=== PATIENT | female | born 1995 ===

== ENCOUNTER → 2023-06-28 | Outpatient (CLI) | payer OTHER ==
[2023-06-28 16:01] LABS: Source, Urine Voided
[2023-06-28 16:48] LABS: Appearance, Urine Clear (Clear); Bilirubin, Urine Neg (Neg); Blood, Urine Neg (Neg); Glucose Qualitative, Urine Neg (Neg); Ketones, Urine Neg (Neg); Leukocyte Esterase, Urine Neg (Neg); Nitrite, Urine Neg (Neg); Protein, Urine Neg (Neg); Specific Gravity, Urine 1.015 (1.003-1.022); Urobilinogen, Urine NORM (Normal); pH, Urine 6.5 (5.0-8.0)
[2023-06-28 17:00] LABS: Color, Urine Pale Yellow (P-Yellow)
[2023-06-28 19:27] LABS: BASOPHILS ABSOLUTE AUTO 0.02 K/mm3 (0.00-0.23); BASOPHILS PERCENT AUTO 0 % (0-2); EOSINOPHILS ABSOLUTE AUTO 0.36 K/mm3 (0.00-0.68); EOSINOPHILS PERCENT AUTO 4 % (0-6); Hematocrit 34.3 % (33.0-51.0); Hemoglobin 10.8 g/dL (11.5-16.0); IMMATURE GRAN ABSOLUTE AUTO 0.16 K/mm3 (0.00-0.10); IMMATURE GRAN PERCENT AUTO 2 % (0-1); LYMPHOCYTES ABSOLUTE AUTO 2.01 K/mm3 (0.84-5.20); LYMPHOCYTES PERCENT AUTO 21 % (21-46); MONOCYTES ABSOLUTE AUTO 0.75 K/mm3 (0.16-1.47); MONOCYTES PERCENT AUTO 8 % (4-13); Mean Corpuscular HGB Conc 31.5 g/dL (31.5-36.5); Mean Corpuscular Volume 92 fL (80-100); Mean Platelet Volume 12.3 fL (9.1-12.4); NEUTROPHILS ABSOLUTE AUTO 6.52 K/mm3 (1.96-9.15); NEUTROPHILS PERCENT AUTO 66 % (41-73); Platelet Count 272 K/mm3 (150-400); RDW Coefficient Variation 13.5 % (11.7-14.2); RDW Standard Deviation 45.6 fL (35.1-46.3); Red Blood Cell Count 3.73 M/mm3 (3.80-5.20); White Blood Cell Count 9.82 K/mm3 (4.00-11.30)
[2023-06-30 01:09] LABS: CHLAMYDIA TRACHOMATIS, NAA Negative (Negative)
[2023-06-30 06:12] LABS: HBSAG SCREEN Negative (Negative)
[2023-06-30 07:13] LABS: HIV AB/P24 AG SCREEN Non Reactive (Non Reactive)
== END | disposition home or self-care (01) ==
LOC: LAB 15:59 → LAB SHORT 15:59
PROVIDERS: Registered Nurse Community Health
DX: Z34.02 Encounter for supervision of normal first pregnancy, second trimester (principal); Z3A.00 Weeks of gestation of pregnancy not specified
CPT/HCPCS: 80055; 81003; 84443; 87086; 87389; 87491; 87591

== ENCOUNTER → 2023-08-24 | Outpatient (CLI) | payer OTHER ==
[2023-08-24 17:49] LABS: Hematocrit 29.1 % (33.0-51.0); Hemoglobin 9.2 g/dL (11.5-16.0)
== END | disposition home or self-care (01) ==
LOC: LAB 16:34 → LAB SHORT 16:34
PROVIDERS: Registered Nurse Community Health
DX: Z34.02 Encounter for supervision of normal first pregnancy, second trimester (principal)
CPT/HCPCS: 82950; 85014; 85018

== ENCOUNTER → 2023-09-08 | Outpatient (CLI) | payer OTHER ==
[2023-09-08 17:45] LABS: Percent Saturation 13.1 % (15.0-50.0)
== END | disposition home or self-care (01) ==
LOC: LAB 15:28 → LAB SHORT 15:28
PROVIDERS: Registered Nurse Community Health
DX: Z34.02 Encounter for supervision of normal first pregnancy, second trimester (principal)
CPT/HCPCS: 82728; 83540; 83550

== ENCOUNTER → 2023-10-20 | Outpatient (CLI) | payer OTHER | END | disposition home or self-care (01) | LOC: LAB 16:36 → LAB SHORT 16:36 | DX: Z34.03 Encounter for supervision of normal first pregnancy, third trimester (principal) | CPT/HCPCS: 87081; 87150 ==

== ENCOUNTER 2023-11-07 07:58 | Inpatient (IN) | payer OTHER ==
[2023-11-07] VITALS (15 sets, daily range): BP systolic 99–130; BP diastolic 59–84
[~2023-11-07] VITALS: Ht 154.9 cm; Wt 61.0 kg
[2023-11-07 09:29] LABS: BASOPHILS ABSOLUTE AUTO 0.02 K/mm3 (0.00-0.23); BASOPHILS PERCENT AUTO 0 % (0-2); EOSINOPHILS ABSOLUTE AUTO 0.12 K/mm3 (0.00-0.68); EOSINOPHILS PERCENT AUTO 1 % (0-6); Hematocrit 35.2 % (33.0-51.0); Hemoglobin 11.3 g/dL (11.5-16.0); IMMATURE GRAN ABSOLUTE AUTO 0.47 K/mm3 (0.00-0.10); IMMATURE GRAN PERCENT AUTO 5 % (0-1); LYMPHOCYTES ABSOLUTE AUTO 1.79 K/mm3 (0.84-5.20); LYMPHOCYTES PERCENT AUTO 20 % (21-46); MONOCYTES ABSOLUTE AUTO 0.78 K/mm3 (0.16-1.47); MONOCYTES PERCENT AUTO 9 % (4-13); Mean Corpuscular HGB 28.3 pg (26.0-34.0); Mean Corpuscular HGB Conc 32.1 g/dL (31.5-36.5); Mean Corpuscular Volume 88 fL (80-100); Mean Platelet Volume 12.1 fL (9.1-12.4); NEUTROPHILS ABSOLUTE AUTO 5.77 K/mm3 (1.96-9.15); NEUTROPHILS PERCENT AUTO 65 % (41-73); Platelet Count 222 K/mm3 (150-400); RDW Coefficient Variation 16.3 % (11.7-14.2); RDW Standard Deviation 51.8 fL (35.1-46.3); White Blood Cell Count 8.95 K/mm3 (4.00-11.30)
[2023-11-08] VITALS (20 sets, daily range): BP systolic 93–118; BP diastolic 52–76
[2023-11-09] VITALS (7 sets, daily range): BP systolic 88–109; BP diastolic 53–65
[2023-11-09 06:03] LABS: Hemoglobin 9.2 g/dL (11.5-16.0); Mean Corpuscular HGB 28.4 pg (26.0-34.0); Mean Corpuscular HGB Conc 31.7 g/dL (31.5-36.5); Mean Corpuscular Volume 90 fL (80-100); Mean Platelet Volume 11.8 fL (9.1-12.4); Platelet Count 171 K/mm3 (150-400); RDW Coefficient Variation 16.6 % (11.7-14.2); RDW Standard Deviation 54.5 fL (35.1-46.3); Red Blood Cell Count 3.24 M/mm3 (3.80-5.20); White Blood Cell Count 11.46 K/mm3 (4.00-11.30)
--- NOTE | 2023-11-09 16:24 | NUR ---
DISCHARGE NOTE; PT TO DC NOW. DC INSTRUCTIONS PROVIDED AND PT ENCOURAGED TO ASK QUESTIONS. PT DENIES ANY QUESTIONS. PPFU APPT CARD GIVEN. BLEEDING IS WNL. PT IS VOIDING. SOME URGE INCONTINENCE, AWARE. PT BEING PUSHED OUT VIA WHEEL CHAIR BY PIA POSADA PRESENTLY.
== END 2023-11-09 16:24 | disposition home or self-care (01) | DRG 807 ==
LOC: OBS 07:58 → BC 08:01 → OBS 08:20 → BC 08:21
PROVIDERS: Family Medicine; ADMIT Registered Nurse Community Health
PROC: 10E0XZZ Delivery of Products of Conception, External Approach (ICD-10-PCS; principal; 2023-11-08)
PROC: 0KQM0ZZ Repair Perineum Muscle, Open Approach (ICD-10-PCS; principal; 2023-11-08)
DX: O99.824 Streptococcus B carrier state complicating childbirth (principal); Z37.0 Single live birth; Z3A.00 Weeks of gestation of pregnancy not specified; O70.1 Second degree perineal laceration during delivery; O69.1XX0 Labor and delivery complicated by cord around neck, with compression, not applicable or unspecified
CPT/HCPCS: 36415; 51702; 59025; 85025; 85027; 86850; 86900; 86901; A9270; J0290; J1885; J2405; J2590; J3010; J7120; J7121

== ENCOUNTER → 2023-11-23 | Outpatient (CLI) | payer OTHER ==
[2023-11-23 19:11] LABS: BASOPHILS ABSOLUTE AUTO 0.05 K/mm3 (0.00-0.23); BASOPHILS PERCENT AUTO 1 % (0-2); EOSINOPHILS ABSOLUTE AUTO 0.34 K/mm3 (0.00-0.68); EOSINOPHILS PERCENT AUTO 4 % (0-6); Hematocrit 40.2 % (33.0-51.0); Hemoglobin 12.7 g/dL (11.5-16.0); IMMATURE GRAN ABSOLUTE AUTO 0.08 K/mm3 (0.00-0.10); IMMATURE GRAN PERCENT AUTO 1 % (0-1); LYMPHOCYTES ABSOLUTE AUTO 2.47 K/mm3 (0.84-5.20); LYMPHOCYTES PERCENT AUTO 28 % (21-46); MONOCYTES PERCENT AUTO 8 % (4-13); Mean Corpuscular HGB Conc 31.6 g/dL (31.5-36.5); Mean Corpuscular Volume 89 fL (80-100); Mean Platelet Volume 11.6 fL (9.1-12.4); NEUTROPHILS ABSOLUTE AUTO 5.11 K/mm3 (1.96-9.15); NEUTROPHILS PERCENT AUTO 58 % (41-73); Platelet Count 357 K/mm3 (150-400); RDW Coefficient Variation 15.5 % (11.7-14.2); RDW Standard Deviation 50.5 fL (35.1-46.3); Red Blood Cell Count 4.53 M/mm3 (3.80-5.20); White Blood Cell Count 8.75 K/mm3 (4.00-11.30)
== END | disposition home or self-care (01) ==
LOC: LAB 17:26 → LAB SHORT 17:26
PROVIDERS: Registered Nurse Community Health
DX: Z39.2 Encounter for routine postpartum follow-up (principal)
CPT/HCPCS: 85025

== ENCOUNTER → 2023-12-06 | Outpatient (CLI) | payer OTHER ==
[2023-12-06 20:02] LABS: BASOPHILS ABSOLUTE AUTO 0.02 K/mm3 (0.00-0.23); BASOPHILS PERCENT AUTO 0 % (0-2); EOSINOPHILS PERCENT AUTO 6 % (0-6); Hematocrit 43.3 % (33.0-51.0); Hemoglobin 13.6 g/dL (11.5-16.0); IMMATURE GRAN ABSOLUTE AUTO 0.02 K/mm3 (0.00-0.10); IMMATURE GRAN PERCENT AUTO 0 % (0-1); LYMPHOCYTES ABSOLUTE AUTO 2.37 K/mm3 (0.84-5.20); LYMPHOCYTES PERCENT AUTO 45 % (21-46); MONOCYTES PERCENT AUTO 8 % (4-13); Mean Corpuscular HGB Conc 31.4 g/dL (31.5-36.5); Mean Corpuscular Volume 89 fL (80-100); Mean Platelet Volume 11.3 fL (9.1-12.4); NEUTROPHILS ABSOLUTE AUTO 2.14 K/mm3 (1.96-9.15); NEUTROPHILS PERCENT AUTO 41 % (41-73); Platelet Count 301 K/mm3 (150-400); RDW Coefficient Variation 14.6 % (11.7-14.2); RDW Standard Deviation 48.6 fL (35.1-46.3); Red Blood Cell Count 4.85 M/mm3 (3.80-5.20); White Blood Cell Count 5.25 K/mm3 (4.00-11.30)
[2023-12-06 21:03] LABS: Albumin, Blood 3.6 g/dL (3.4-5.0); Albumin/Globulin Ratio 0.8 (0.8-1.8); Bilirubin, Total 0.2 mg/dL (0.1-1.0); Bun/Creatinine Ratio 14.2 (12.0-20.0); Calcium, Blood 9.2 mg/dL (8.5-10.1); Creatinine, Blood 0.77 mg/dL (0.40-1.00); Globulin, Blood 4.3 g/dL (2.2-4.0); Total Protein, Blood 7.9 g/dL (6.4-8.2)
== END ==
LOC: LAB SHORT 19:52 → LAB 19:52
PROVIDERS: Physician Assistant Medical
DX: R10.2 Pelvic and perineal pain (principal); N89.8 Other specified noninflammatory disorders of vagina
CPT/HCPCS: 80053; 85025; 87070; 87077; 87186; 87205